=== PATIENT | male | born 1995 | race Caucasian/White ===

== ENCOUNTER 2019-10-18 08:05 | Emergency (ER) | payer OTHER ==
[2019-10-18] MEDS ORDERED: Ondansetron 4 MG Tab.DIS PO ONE (08:27)
[2019-10-18] MEDS ORDERED: Ondansetron 4 MG Tab.DIS ONE (08:32)
--- NOTE | 2019-10-18 08:34 | EDM.PDOC ---
ED HPI GENERAL MEDICAL PROBLEM - General Chief Complaint: General Stated Complaint: SICK Time Seen by Provider: 10/18/19 08:20 Source of Information: Reports: Patient History Limitations: Reports: No Limitations - History of Present Illness Onset: Today Onset Time: 04:00 Duration: Hour(s): (4hours of epigastric pain with V and D) Location: Reports: Abdomen Quality: Reports: Burning Severity: Moderate Improves with: Reports: None Worsens with: Reports: None Context: Reports: Other Associated Symptoms: Reports: Nausea/Vomiting Treatments [employer]: Reports: Other Medication(s) (Peptobismol) Abdominal Pain Score (Numeric/FACES): 8 - Related Data Allergies Allergy/AdvReac Type Severity Reaction Status Date / Time No Known Allergies Allergy Verified 10/18/19 08:13 Home Meds: Home Meds Lisdexamfetamine [Vyvanse] 50 mg PO DAILY 10/18/19 [History] metFORMIN [Glucophage] 500 mg PO BIDMEALS 10/18/19 [History] ED ROS GENERAL - Review of Systems Review Of Systems: See Below Constitutional: Reports: No Symptoms HEENT: Reports: No Symptoms Respiratory: Reports: No Symptoms Cardiovascular: Reports: No Symptoms GI/Abdominal: Reports: Abdominal Pain, Diarrhea, Vomiting Musculoskeletal: Reports: No Symptoms Psychiatric: Reports: Agitation ED EXAM, GI/ABD - Physical Exam Exam: See Below Exam Limited By: No Limitations General Appearance: Anxious, Moderate Distress Eyes: Bilateral: Normal Appearance Ears: Normal External Exam, Normal TMs Throat/Mouth: Normal Inspection, Normal Oropharynx Head: Atraumatic Neck: Normal Inspection Respiratory/Chest: No Respiratory Distress, Lungs Clear Cardiovascular: Regular Rate, Rhythm, No Murmur GI/Abdominal Exam: Normal Bowel Sounds, Tender (mild epigastric tenderness) Course - Vital Signs Last Recorded V/S: Last Vital Signs Temp 36.8 C 10/18/19 08:07 Pulse 105 H 10/18/19 08:07 Resp 20 10/18/19 08:07 BP 149/85 H 10/18/19 08:07 Pulse Ox 97 10/18/19 08:07 - Orders/Labs/Meds Meds: Medications Discontinued Medications Generic Name Dose Route Start Last Admin Trade Name Freq PRN Reason Stop Dose Admin Acetaminophen 1,000 mg 10/18/19 09:28 10/18/19 09:28 Tylenol Extra Strength PO 10/18/19 09:29 1,000 mg ONETIME ONE Administration Acetaminophen Confirm 10/18/19 09:25 10/18/19 09:31 Tylenol Extra Strength Administered 10/18/19 09:26 Not Given Dose 1,000 mg .ROUTE .STK-MED ONE Ondansetron HCl Confirm 10/18/19 08:32 10/18/19 09:13 Zofran Odt Administered 10/18/19 08:33 Not Given Dose 4 mg .ROUTE .STK-MED ONE Ondansetron HCl 4 mg 10/18/19 08:27 10/18/19 08:25 Zofran Odt PO 10/18/19 08:28 4 mg ONETIME ONE Administration - Re-Assessments/Exams Free Text/Narrative Re-Assessment/Exam: 10/18/19 09:30 Pt felt much better after Zofran and was able to retain water. Departure - Departure Time of Disposition: 09:30 Disposition: Home, Self-Care 01 Condition: Good Clinical Impression: Gastroenteritis - Discharge Information *PRESCRIPTION DRUG MONITORING PROGRAM REVIEWED*: Not Applicable Instructions: Ondansetron oral dissolving tablet, Viral Gastroenteritis, Adult , [id number] Referrals: PCP,None [Primary Care Provider] - Forms: ED Department Discharge Additional Instructions: Drink plenty of fluids (water) and get plenty of rest. Fill provided prescription at local pharmacy ([facility]) and take Zofran as instructed: 1 tablet dissolved under tongue every 4 hours as needed for nausea. (Next dose at 12:30pm). Clear liquid diet then advance as tolerated. Avoid fatty or spicy foods. Activity as tolerated. Follow up with regular provider if needed. Call with any questions. Sepsis Event Note - Focused Exam Date Exam was Performed: 10/24/19 Time Exam was Performed: 15:43
[2019-10-18] MEDS ORDERED: Acetaminophen 500 MG Tab ONE (09:25)
[2019-10-18] MEDS ORDERED: Acetaminophen 500 MG Tab PO ONE (09:28)
== END 2019-10-18 09:38 | disposition home or self-care (01) ==
LOC: LB.ED 08:05
DX: K52.9 Noninfective gastroenteritis and colitis, unspecified (principal); Z79.84 Long term (current) use of oral hypoglycemic drugs
CPT/HCPCS: 99283; A9270